=== PATIENT | male | born 1995 | race Caucasian/White ===

== ENCOUNTER 2020-07-13 06:25 | Emergency (ER) | payer OTHER, SELFPAY ==
--- NOTE | ~2020-07-13 | XR_ITS ---
EXAMINATION: XR ankle LT min 3V DATE: 07/13/2020 07:01 INDICATION: Left ankle pain. TECHNIQUE: 4 views of left ankle were obtained. COMPARISON: None. FINDINGS: Bone alignment is normal. No fracture. There is mild midfoot osteoarthritis. There is an en thesophyte at posterior aspect of calcaneal tuberosity. Ankle soft tissue swelling is noted. IMPRESSION: 1. Mild midfoot osteoarthritis. Reviewed, dictated and finalized at location A.
--- NOTE | ~2020-07-13 | XR_ITS ---
EXAMINATION: XR foot LT min 3V DATE: 07/13/2020 07:02 INDICATION: Left foot injury and pain. TECHNIQUE: 4 views of left foot were obtained. COMPARISON: None. FINDINGS: There is moderate hallux valgus. There are 4 metatarsals with deformity of the second metat arsal, which is fused to the third metatarsal. There is amputation at the second metatarsophalangeal joint. No fracture. There is mild osteoarthritis of talonavicular joint. There is severe osteoarthrit is and likely ankylosis of the second and third tarsometatarsal joints. There is an enthesophyte at p osterior aspect of calcaneal tuberosity. IMPRESSION: 1. No fracture. 2. Polyarticular osteoarthritis. 3. Chronic foot deformities. Reviewed, dictated and finalized at location A.
[2020-07-13 06:35] VITALS: BP 135/78; PULSE 95; RESP 16; TEMP 36.7; O2SAT 98
--- NOTE | 2020-07-13 07:17 | PC.NURSE ---
Report received from MALIK Mccormick. Awaiting EDP exam.
[2020-07-13] MEDS: IBUPROFEN 400 MG TABLET 800 MG PO (07:27)
--- NOTE | 2020-07-13 07:32 | ED.LOWEXIN ---
HPI - Extremity Injury (Lower) General Chief Complaint: Extremity Injury, Lower Stated Complaint: left foot injury Time Seen by Provider: 07/13/20 07:03 History of Present Illness HPI Narrative: Patient is a 25-year-old male who presents ER with pain of the left foot. Reports he was walking up some steps holding his stepson when he tripped and caught his foot. He started having pain near the heel just beneath the ankles bilaterally. No limitation range of motion. No numbness no tingling. Did not fall and strike his head. Has been able to bear weight. He has tried no pain medication. 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 Related Data Allergies Allergy/AdvReac Type Severity Reaction Status Date / Time No Known Allergies Allergy Mild Verified 07/13/20 07:28 Review of Systems Constitutional: Constitutional: Denies chills and Denies fever(s) Musculoskeletal: Musculoskeletal: Denies arthralgias, Denies joint swelling and Denies muscle cramps Neurologic: Denies focal weakness and Denies numbness PMFSH Past Medical History Medical History (Updated 07/13/20 @ 07:39 by Patrice Dukes MD) Healthy adult male Surgical History Surgical History (Updated 07/13/20 @ 07:35 by Patrice Dukes MD) H/O foot surgery removal of digits 2/3 on left foot History of appendectomy Social History Social History (Updated 07/13/20 @ 07:35 by Patrice Dukes MD) Social History: Works at [employer] Exam Narrative: Exam Narrative: GENERAL: Well-appearing, well-nourished, and in no acute distress. HEAD: Normocephalic, atraumatic. CHEST: Clear to auscultation. No respiratory distress. HEART: Regular rate and rhythm. Normal peripheral pulses. EXTREMITIES: Focused exam of the LLE reveals normal appearing ankle with normal ROM. No redness/swelling. Surgical removal of digits #2 and 3. No reproducible tenderness over the calcaneus. NEURO: Alert and oriented x3. PSYCH: Normal mood and affect. Course Course Emergency Course: On acute injury on imaging. Ibuprofen for pain. D/c home. Vital Signs Vital signs: Vital Signs Temperature 98.0 F 07/13/20 06:35 Pulse Rate 95 07/13/20 06:35 Respiratory Rate 16 07/13/20 06:35 Blood Pressure 135/78 07/13/20 06:35 Pulse Oximetry 98 07/13/20 06:35 Temperature 98.0 F 07/13/20 06:35 Pulse Rate 95 07/13/20 06:35 Respiratory Rate 16 07/13/20 06:35 Blood Pressure 135/78 07/13/20 06:35 Pulse Oximetry 98 07/13/20 06:35 MDM - Extremity Injury (Lower) Imaging Data Radiologist's impression: ITS Impressions Ankle X-Ray 07/13/20 07:06 IMPRESSION: 1. Mild midfoot osteoarthritis. Foot X-Ray 07/13/20 07:07 IMPRESSION: 1. No fracture. 2. Polyarticular osteoarthritis. 3. Chronic foot deformities. Discharge Plan Discharge Clinical Impression: Ankle sprain and strain Patient Disposition: Home, Self-Care Condition: Stable Instructions: Ankle Sprain (ED) Additional Instructions: Return to the ER if you suffer new injury, you develop a red/swollen foot or ankle, or you have additional concerns. Take ibuprofen help with your discomfort. You may want to take this with food to prevent ulcer formation in your stomach. Prescriptions: New ibuprofen 800 mg tablet 800 mg PO TID Qty: 20 RF: 0 Follow-up/Referrals: Jonathan Haney MD [Primary Care Provider] - 1 Week Stand Alone Forms: Work/School Release IP
--- NOTE | 2020-07-13 07:50 | PC.NURSE ---
Pt requests crutches to return to work. Dr. Dukes aware and v.o. received. Crutches fit and dispensed.
== END 2020-07-13 07:55 | disposition home or self-care (01) ==
PROVIDERS: Emergency Provider Emergency Medicine; PCP Emergency Medicine
DX: S93.602A Unspecified sprain of left foot, initial encounter (principal); S96.912A Strain of unspecified muscle and tendon at ankle and foot level, left foot, initial encounter; W18.40XA Slipping, tripping and stumbling without falling, unspecified, initial encounter
CPT/HCPCS: 73610; 73630; 99283; A9270

== ENCOUNTER 2024-02-21 00:10 | Emergency (ER) | payer OTHER, SELFPAY ==
--- NOTE | ~2024-02-21 | XR_ITS ---
EXAMINATION: XR foot LT min 3V DATE: 02/21/2024 03:22 INDICATION: Left foot numbness. TECHNIQUE: 4 views of left foot were obtained. COMPARISON: Left foot radiographs 07/13/2020 FINDINGS: There is moderate hallux valgus. No acute fracture. There are 4 metatarsals that will be nu mbered 1 through 4 for the purposes of this report. There is amputation at second metatarsophalangeal joint. There is bridging bone between the diaphyses of the second and third metatarsals. No acute fr acture. There is mild osteoarthritis of first metatarsophalangeal joint and some of the midfoot joint s. There may be ankylosis of the second and third tarsometatarsal joints. There is an enthesophyte of posterior aspect of calcaneal tuberosity. IMPRESSION: 1. Polyarticular osteoarthritis. 2. Chronic foot deformities. Reviewed, dictated and finalized at location A.
[2024-02-21 00:15] VITALS: BP 135/77; PULSE 98; RESP 18; TEMP 36.4; O2SAT 98
--- NOTE | 2024-02-21 03:33 | ED_ITS ---
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 The patient denies significant pain and notes this worsens with walking. He has no other complaints at this time. Related Data Allergies Allergy/AdvReac Type Severity Reaction Status Date / Time No Known Allergies Allergy Mild Verified 02/21/24 00:12 Review of Systems Review of Systems: All systems reviewed & are unremarkable except as noted in HPI and below PMFSH Past Medical History Medical History Healthy adult male Surgical History Surgical History H/O foot surgery removal of digits 2/3 on left foot History of appendectomy Social History Social History Social History: Works at [employer] Exam Narrative: GENERAL: Well-developed, well-nourished, and in no acute distress. HEAD: Normocephalic, atraumatic. EYES: PERRLA and EOMI. CHEST: Clear to auscultation. No respiratory distress. No wheezes rales or rhonchi HEART: Regular rate and rhythm. No murmur heard. Normal peripheral pulses. EXTREMITIES: There is a well-healed surgical scar of the midline left foot consistent with amputation. There is no noted erythema, induration or rash of the foot. Normal range of motion. No edema. BACK: No midline spine tenderness to palpation, step-off or crepitus SKIN: Warm, dry, no rash. NEURO: Alert and oriented x3. Strength 5/5 in all extremities. Mild numbness and paresthesias of the lateral aspect of the left foot compared to the right. Sensation otherwise intact. PSYCH: Normal mood and affect. Course Course Emergency Course: 03:30 - x-ray of the left foot by my review shows increased sclerotic changes between the 1st and 2nd metatarsals as well as among the carpal bones. There is no obvious fracture or lytic appearing lesions by my review. I suspect arthritic changes as the cause of the patient's paresthesias. Will discharge with a Medrol Dosepak and recommendation for primary care and podiatry follow- up. I discussed the findings and recommendations with the patient. Discussed return and emergency precautions including signs/symptoms of septic arthritis and neurovascular compromise. The patient voiced understanding and agreement with the plan. All questions answered to his satisfaction. Vital Signs Vital signs: Vital Signs Temperature 97.5 F L 02/21/24 00:15 Pulse Rate 98 02/21/24 00:15 Respiratory Rate 18 02/21/24 00:15 Blood Pressure 135/77 02/21/24 00:15 Pulse Oximetry 98 02/21/24 00:15 Oxygen Delivery Room Air 02/21/24 00:15 Temperature 97.5 F L 02/21/24 00:15 Pulse Rate 98 02/21/24 00:15 Respiratory Rate 18 02/21/24 00:15 Blood Pressure 135/77 02/21/24 00:15 Pulse Oximetry 98 02/21/24 00:15 Oxygen Delivery Room Air 02/21/24 00:15 MDM - Extremity (Nontraumatic) MDM Narrative Medical decision making narrative: Plan: Imaging, reassess Differential Diagnosis Differential diagnosis: Likely other Discharge Plan Discharge Clinical Impression: Paresthesia of left foot Arthritis of foot Qualifiers: Laterality: left Qualified Code(s): M19.072 - Primary osteoarthritis, left ankle and foot Patient Disposition: Home, Self-Care Condition: Stable Instructions: Antibiotic Form, Arthritis (ED) Additional Instructions: You were seen in the emergency department. Your x-rays showed increased bone growth in the foot, I suspect related to arthritis. I recommend a short course of oral steroids and follow-up with a primary care doctor as well as a special events director. If you develop fevers with severe foot pain and rapidly spreading redness, the toes appear blue/cold, or if you have other emergent concerns for life, limb, or eyesight, return to the emergency department. Patient Language: Italian Prescriptions: New methylprednisolone [Medrol (Orlin)] 4 mg tablets,dose pack See Rx Instructions .ROUTE .COMPLEX Qty: 21 0RF Rx Instructions: for 6 days No Action ibuprofen 800 mg tablet 800 mg PO TID Qty: 20 0RF Follow-up/Referrals: Kota Rogers Jr., DPM [Physician] - 1 Week PHYSICIAN,ENGINEERING PROGRAM MANAGER [Primary Care Provider] - Stand Alone Forms: Work/School Release IP Time of Disposition: 03:36
== END 2024-02-21 03:40 | disposition home or self-care (01) ==
PROVIDERS: Emergency Provider Preventive Medicine Aerospace Medicine
DX: R20.2 Paresthesia of skin (principal); M19.072 Primary osteoarthritis, left ankle and foot; Z89.422 Acquired absence of other left toe(s)
CPT/HCPCS: 73630; 99283

== ENCOUNTER 2024-02-27 09:11 | Emergency (ER) | payer OTHER, SELFPAY ==
[2024-02-27 09:11] VITALS: BP 137/82; PULSE 84; RESP 16; TEMP 36.4; O2SAT 98
--- NOTE | 2024-02-27 11:13 | ED.EXTPRO ---
HPI - Extremity Problem General Chief complaint: Extremity Problem,Nontraumatic Stated complaint: CHRONIC L FOOT PAIN Time Seen by Provider: 02/27/24 11:13 Source: patient Mode of arrival: ambulatory Limitations: no limitations History of Present Illness HPI Narrative: This is a 29-year-old male that presents to the emergency department for left foot pain that has been ongoing over the last month. Patient born with a foot deformity. Has had to have several surgeries on the foot. No recent injuries. Patient was recently evaluated in the ER for this. He is also seen a environmental quality analyst. He tried to go to work today and was unable to work which prompted him to be seen again today. Related Data Allergies Allergy/AdvReac Type Severity Reaction Status Date / Time No Known Allergies Allergy Mild Verified 02/21/24 00:12 Review of Systems Review of Systems: CONSTITUTIONAL: Denies fever SKIN: Denies redness or abnormal swelling MUSCULOSKELETAL: Reports joint pain, and myalgia. NEUROLOGIC: Denies numbness All systems reviewed & are unremarkable except as noted in HPI and below PMFSH Past Medical History Medical History Healthy adult male Surgical History Surgical History H/O foot surgery removal of digits 2/3 on left foot History of appendectomy Social History Social History Social History: Works at [employer] Exam Narrative: GENERAL: Well-appearing, well-nourished, and in no acute distress. HEAD: Normocephalic, atraumatic. EYES: EOMI. EXTREMITIES: Normal range of motion. No edema or erythema. Normal DP pulse. 2nd and 3rd toes are amputated SKIN: Warm, dry, no rash. NEURO: No focal deficits. Alert and oriented x3. PSYCH: Normal mood and affect Course Course Emergency Course: Patient agrees with plan of care Vital Signs Vital signs: Vital Signs Temperature 97.6 F 02/27/24 09:11 Pulse Rate 84 02/27/24 09:11 Respiratory Rate 16 02/27/24 09:11 Blood Pressure 137/82 02/27/24 09:11 Pulse Oximetry 98 02/27/24 09:11 Oxygen Delivery Room Air 02/27/24 09:11 Temperature 97.6 F 02/27/24 09:11 Pulse Rate 84 02/27/24 09:11 Respiratory Rate 16 02/27/24 09:11 Blood Pressure 137/82 02/27/24 09:11 Pulse Oximetry 98 02/27/24 09:11 Oxygen Delivery Room Air 02/27/24 09:11 MDM - Extremity (Nontraumatic) MDM Narrative Medical decision making narrative: patient presents to the emergency department for left hip pain has been ongoing over the last month. Born with foot deformity, has had several surgeries on the foot. No recent injuries or trauma. Had an x-ray of the foot 6 days ago which showed polyarticular osteoarthritis. Patient presents today as he tried to go to work and was unable to work. Patient is neurovascularly intact. No erythema or warmth of the foot. He will be given a work note and instructed to have continued follow-up with his environmental quality analyst. He was given warnings to return to the ER Differential Diagnosis Differential diagnosis: Likely gout, cellulitis and other ( osteoarthritis) Medical Records Attestation: I reviewed the patient's medical records. Medical records narrative: Left foot x-ray 02/20: IMPRESSION: 1. Polyarticular osteoarthritis. 2. Chronic foot deformities. Critical Care Time Critical Care Time Critical Care Time: No Discharge Plan Discharge Clinical Impression: Chronic pain in left foot Patient Disposition: Home, Self-Care Condition: Stable Instructions: Arthralgia (ED), Metatarsalgia (DC) Additional Instructions: Return to the ER if you experience fever, redness and swelling of your extremity, numbness or any other symptoms that are concerning to you Ice and elevate extremity. Tylenol or Ibuprofen as needed for pain Follow up with your environmental quality analyst for further care Prescriptions: No Action ibuprofen 800 mg tablet 800 mg PO TID Qty: 20 0RF methylprednisolone [Medrol (Orlin)] 4 mg tablets,dose pack See Rx Instructions .ROUTE .COMPLEX Qty: 21 0RF Rx Instructions: for 6 days Follow-up/Referrals: PHYSICIAN,[facility] PICKER [Primary Care Provider] - Stand Alone Forms: Work/School Release IP
== END 2024-02-27 11:20 | disposition home or self-care (01) ==
LOC: ANHED 11:16
PROVIDERS: Emergency Provider Physician Assistant
DX: M79.672 Pain in left foot (principal); G89.29 Other chronic pain; Q66.92 Congenital deformity of feet, unspecified, left foot
CPT/HCPCS: 99282